=== PATIENT | female | born 1930 | race Hispanic/Latino ===

== ENCOUNTER 2019-07-22 20:42 | Emergency (ER) | payer OTHER ==
[2019-07-22 22:12] LABS: Urine Blood NEGATIVE (NEG); Urine Glucose TRACE (NEG); Urine Protein NEGATIVE (NEG)
[2019-07-22] MEDS ORDERED: ONDANSETRON 4 MG/2 ML VIAL ONE (22:17)
[2019-07-22] MEDS ORDERED: NA CHLORIDE 0.9% 1,000 ML ONE (22:17)
--- NOTE | 2019-07-22 22:31 | RAD REPORT ---
EXAM DESCRIPTION: CT - Head Brain Wo Cont - 07/22/2019 10:04 pm CLINICAL HISTORY: HEADACHE, hypertension, vomiting COMPARISON: No comparisons TECHNIQUE: Axial 5 mm thick images of the head were obtained without IV contrast. All CT scans are performed using dose optimization technique as appropriate and may include automated exposure control or mA/KV adjustment according to patient size. FINDINGS: No intracranial hemorrhage, mass, edema or shift of mid-line structures. No acute infarcti on changes seen. No cortical edema or sulcal effacement. Moderate severity atrophy is present. Chroni c ischemic change present but relatively mild. Ventricles are in proportion to the volume loss. Arter ial and physiologic calcifications are present. Mastoid air cells and visualized portions of the paranasal sinuses are clear. No acute bony findings. IMPRESSION: Atrophy and chronic ischemic changes are present. No acute intracranial finding.
[2019-07-22 22:40] LABS: Absolute Lymphocytes (CBC) 0.9 K/uL (0.7-4.9); Basophils % 0.3 % (0-1.3); Hematocrit 39.2 % (36.0-45.0); Lymphocytes % 9.9 % (15.3-44.8); MPV 10.9 fL (7.6-11.3); RBC Red Blood Cell Count 4.36 M/uL (3.86-4.86)
[2019-07-22 22:42] LABS: Protime INR 0.97
[2019-07-22 23:00] LABS: ALT/SGPT 24 U/L (12-78); AST/SGOT 19 U/L (15-37); Albumin 3.4 g/dL (3.4-5.0); Alkaline Phosphatase 115 U/L (45-117); BUN Blood Urea Nitrogen 15 mg/dL (7-18); Bicarbonate 29 mmol/L (21-32); Bilirubin Direct 0.2 mg/dL (0-0.2); Bilirubin Total 0.6 mg/dL (0.2-1.0); Glucose Level 104 mg/dL (74-106); Magnesium 2.3 mg/dL (1.8-2.4); NT PRO-BNP 1115 pg/mL (<450); Potassium 3.9 mmol/L (3.5-5.1); Protein, Total 7.5 g/dL (6.4-8.2); Sodium Level 137 mmol/L (136-145); Troponin (Emerg Dept Use Only) < 0.02 ng/mL (0.0-0.045)
[2019-07-22] MEDS ORDERED: AMLODIPINE 5 MG TAB ONE (23:01)
[2019-07-22] MEDS ORDERED: CEFTRIAXONE/SWI 1gm 1 GM/10 ML SYR ONE (23:01)
[2019-07-22] MEDS ORDERED: ACETAMINOPHEN 500 MG TAB ONE (23:25)
--- NOTE | 2019-07-23 00:12 | EDPHYS ---
Physician Documentation [facility] Name: Karolina Selby Age: 89 yrs Sex: Female : 1930 Arrival Date: 07/22/2019 Time: 20:49 Bed 6 Private MD: JASON Physician Fredi West HPI: 07/21 22:48 This 89 yrs old Female presents to ER via Wheelchair with complaints of manolo Headache. 22:48 The patient complains of pain to the top of head, forehead, left frontal area, left manolo side of the back of head, left occipital area, left base of the skull, right frontal area, right side of the back of head, right occipital area and right base of the skull. The patient describes the headache as aching. Onset: The symptoms/episode began/occurred just prior to arrival. Associated signs and symptoms: The patient has no apparent associated signs or symptoms. Severity of symptoms: At its worst the pain was mild, in the emergency department the pain is unchanged. Headache History: Denies prior headaches. The symptoms are alleviated by nothing. the symptoms are aggravated by nothing. The patient has not experienced similar symptoms in the past. Historical: - Allergies: 21:08 Shrimp; ca1 21:08 Iodine; ca1 21:33 shellfish; ca1 - Home Meds: 21:33 aspirin 81 mg Oral chew 1 tab once daily [Active]; Lexapro 10 mg Oral tab 1 tab once ca1 daily [Active]; Plavix 75 mg Oral tab 1 tab once daily [Active]; acebutolol 200 mg Oral cap 1 cap once daily [Active]; losartan 100 mg oral tab 1 tab once daily [Active]; Lipitor 20 mg Oral tab 1 tab nightly [Active]; Dexilant 60 mg oral CpDB 1 cap as needed [Active]; meclizine 12.5 mg Oral tab as needed [Active]; - PMHx: 21:33 Hyperlipidemia; Hypertension; ca1 - Immunization history:: Adult Immunizations up to date, Pneumococcal vaccine is up to date, Flu vaccine is up to date. - Social history:: Smoking status: Patient denies any tobacco usage or history of. - Family history:: not pertinent. ROS: 22:48 Constitutional: Negative for fever, chills, and weight loss, Eyes: Negative for injury, manolo pain, redness, and discharge, ENT: Negative for injury, pain, and discharge, Neck: Negative for injury, pain, and swelling, Cardiovascular: Negative for chest pain, palpitations, and edema, Respiratory: Negative for shortness of breath, cough, wheezing, and pleuritic chest pain, Abdomen/GI: Negative for abdominal pain, nausea, vomiting, diarrhea, and constipation, Back: Negative for injury and pain, : Negative for injury, bleeding, discharge, and swelling, MS/Extremity: Negative for injury and deformity, Skin: Negative for injury, rash, and discoloration, Psych: Negative for depression, anxiety, suicide ideation, homicidal ideation, and hallucinations, Allergy/Immunology: Negative for hives, rash, and allergies, Endocrine: Negative for neck swelling, polydipsia, polyuria, polyphagia, and marked weight changes, Hematologic/Lymphatic: Negative for swollen nodes, abnormal bleeding, and unusual bruising. 22:48 Neuro: Positive for headache. Exam: 22:48 Constitutional: This is a well developed, well nourished patient who is awake, alert, manolo and in no acute distress. Head/Face: Normocephalic, atraumatic. Eyes: Pupils equal round and reactive to light, extra-ocular motions intact. Lids and lashes normal. Conjunctiva and sclera are non-icteric and not injected. Cornea within normal limits. Periorbital areas with no swelling, redness, or edema. ENT: Nares patent. No nasal discharge, no septal abnormalities noted. Tympanic membranes are normal and external auditory canals are clear. Oropharynx with no redness, swelling, or masses, exudates, or evidence of obstruction, uvula midline. Mucous membranes moist. Neck: Trachea midline, no thyromegaly or masses palpated, and no cervical lymphadenopathy. Supple, full range of motion without nuchal rigidity, or vertebral point tenderness. No Meningismus. Chest/axilla: Normal chest wall appearance and motion. Nontender with no deformity. No lesions are appreciated. Cardiovascular: Regular rate and rhythm with a normal S1 and S2. No gallops, murmurs, or rubs. Normal PMI, no JVD. No pulse deficits. Respiratory: Lungs have equal breath sounds bilaterally, clear to auscultation and percussion. No rales, rhonchi or wheezes noted. No increased work of breathing, no retractions or nasal flaring. Abdomen/GI: Soft, non-tender, with normal bowel sounds. No distension or tympany. No guarding or rebound. No evidence of tenderness throughout. Back: No spinal tenderness. No costovertebral tenderness. Full range of motion. Female : Normal external genitalia. Skin: Warm, dry with normal turgor. Normal color with no rashes, no lesions, and no evidence of cellulitis. MS/ Extremity: Pulses equal, no cyanosis. Neurovascular intact. Full, normal range of motion. Neuro: Awake and alert, GCS 15, oriented to person, place, time, and situation. Cranial nerves II-XII grossly intact. Motor strength 5/5 in all extremities. Sensory grossly intact. Cerebellar exam normal. Normal gait. Psych: Awake, alert, with orientation to person, place and time. Behavior, mood, and affect are within normal limits. Vital Signs: 21:00 BP 220 / 85; Pulse 85; Resp 18 S; Temp 98.3(TE); Pulse Ox 98% on R/A; Weight 61.23 kg ca1 (R); Height 5 ft. 3 in. (160.02 cm) (R); 22:31 BP 176 / 101; Pulse 69; Resp 17; Pulse Ox 98% on R/A; rr5 23:00 BP 196 / 110; Pulse 65; Resp 17; Pulse Ox 98% on R/A; rr5 07/22 00:00 BP 177 / 74; Pulse 68; Resp 16; Pulse Ox 97% ; rr5 01:00 BP 166 / 80; Pulse 64; Resp 19; Temp 98.4; Pulse Ox 99% ; rr5 07/21 21:00 Body Mass Index 23.91 (61.23 kg, 160.02 cm) ca1 James Coma Score: 07/21 21:00 Eye Response: spontaneous(4). Verbal Response: confused(4). Motor Response: obeys rr5 commands(6). Total: 14. MDM: 21:22 Patient medically screened. [facility] 22:51 Data reviewed: vital signs, nurses notes, lab test result(s), EKG, radiologic studies, [facility] CT scan, plain films. 07/21 21:39 Order name: Basic Metabolic Panel; Complete Time: 23:43 [facility] 07/21 21:39 Order name: CBC with Diff; Complete Time: 22:46 [facility] 07/21 21:39 Order name: LFT's; Complete Time: 23:43 [facility] 07/21 21:39 Order name: Magnesium; Complete Time: 23:43 [facility] 07/21 21:39 Order name: NT PRO-BNP; Complete Time: 23:43 [facility] 07/21 21:39 Order name: PT-INR; Complete Time: 22:46 [facility] 07/21 21:39 Order name: Troponin (emerg Dept Use Only); Complete Time: 23:43 [facility] 07/21 21:39 Order name: XRAY Chest (1 view) [facility] 07/21 21:39 Order name: Urine Culture [facility] 07/21 21:39 Order name: CT Head Brain wo Cont; Complete Time: 22:46 [facility] 07/21 22:10 Order name: Urine Dipstick--Ancillary (enter results) 07/21 22:13 Order name: Urine Dipstick-Ancillary; Complete Time: 22:46 EDMS 07/21 21:39 Order name: EKG; Complete Time: 21:40 [facility] 07/21 21:39 Order name: Cardiac monitoring; Complete Time: 22:31 [facility] 07/21 21:39 Order name: EKG - Nurse/Tech; Complete Time: 22:31 [facility] 07/21 21:39 Order name: IV Saline Lock; Complete Time: 22:37 [facility] 07/21 21:39 Order name: Labs collected and sent; Complete Time: 22:37 [facility] 07/21 21:39 Order name: O2 Per Protocol; Complete Time: 22:31 [facility] 07/21 21:39 Order name: O2 Sat Monitoring; Complete Time: 22:31 [facility] 07/21 21:39 Order name: Urine Dipstick-Ancillary (obtain specimen); Complete Time: 22:31 [facility] Administered Medications: 22:37 Drug: NS 0.9% 1000 ml Route: IV; Rate: 125 ml/hr; Site: left forearm; rr5 07/22 01:00 Follow up: Response: No adverse reaction; IV Status: Order to discontinue infusion; IV rr5 Intake: 300ml 07/21 22:54 CANCELLED (Duplicate Order): Norvasc 5 mg PO once [facility] 22:55 Drug: Rocephin 1 grams Route: IV; Rate: per protocol; Site: left forearm; rr5 23:55 Follow up: Response: No adverse reaction; IV Status: Completed infusion; IV Intake: [id number] 23:00 Drug: Zofran (Ondansetron) 4 mg Route: IVP; Site: left forearm; rr5 07/22 00:00 Follow up: Response: No adverse reaction rr5 07/21 23:10 Drug: Tylenol 1000 mg Route: PO; rr5 07/22 00:10 Follow up: Response: No adverse reaction rr5 07/21 23:15 Drug: Norvasc 10 mg Route: PO; rr5 07/22 00:21 Follow up: Response: No adverse reaction; Blood pressure is lowered rr5 00:21 Drug: TORadol 30 mg Route: IVP; Site: left forearm; rr5 01:00 Follow up: Response: No adverse reaction; Pain is decreased rr5 Disposition: 07/23/19 00:11 Discharged to Home. Impression: Essential (primary) hypertension, Urinary tract infection, site not specified, Dementia in other diseases classified elsewhere, Headache. - Condition is Stable. - Discharge Instructions: Dysuria, General Headache Without Cause, Hypertension, Urinary Tract Infection, Adult, Urinary Tract Infection, Adult, Wrpy-ul-Vaoz, Hypertension, Jyal-eh-Rjwn, How to Take Your Blood Pressure, Ffoj-ev-Mclq, General Headache Without Cause, Yrol-mn-Jkjz, Managing Your Hypertension. - Prescriptions for Cipro 250 mg Oral Tablet - take 1 tablet by ORAL route every 12 hours; 14 tablet. Norvasc 5 mg Oral Tablet - take 1 tablet by ORAL route once daily; 20 tablet. - Medication Reconciliation Form, Thank You Letter, Antibiotic Education, Prescription Opioid Use form. - Follow up: Private Physician; When: 2 - 3 days; Reason: Recheck today's complaints, Continuance of care, Re-evaluation by your physician. Follow up: Sorin Fonseca; When: 2 - 3 days; Reason: Recheck today's complaints, Continuance of care, Re-evaluation by your physician. Follow up: Joe Chandra; When: 2 - 3 days; Reason: Recheck today's complaints, Re-evaluation by your physician. - Problem is new. - Symptoms have improved. Signatures: Dispatcher [employer] EDFredi Greene MD MD cha Roque, Raymond, RN RN rr5 Ofelia Lutz RN RN ca1 Corrections: (The following items were deleted from the chart) 07/21 22:54 22:53 Norvasc 5 mg PO once ordered. [facility] 07/22 00:13 00:11 07/23/2019 00:11 Discharged to Home. Impression: Essential (primary) manolo hypertension; Urinary tract infection, site not specified; Dementia in other diseases classified elsewhere. Condition is Stable. Discharge Instructions: Dysuria, Hypertension, Urinary Tract Infection, Adult, Urinary Tract Infection, Adult, Rjws-id-Hyzl, Hypertension, Ueyy-il-Ryhu, How to Take Your Blood Pressure, Lkkl-nz-Nzuq, Managing Your Hypertension. Prescriptions for Norvasc 5 mg Oral Tablet - take 1 tablet by ORAL route once daily; 20 tablet, Cipro 250 mg Oral Tablet - take 1 tablet by ORAL route every 12 hours; 14 tablet. and Forms are Medication Reconciliation Form, Thank You Letter, Antibiotic Education, Prescription Opioid Use. Follow up: Private Physician; When: 2 - 3 days; Reason: Recheck today's complaints, Continuance of care, Re-evaluation by your physician. Follow up: Sorin Fonseca; When: 2 - 3 days; Reason: Recheck today's complaints, Continuance of care, Re-evaluation by your physician. Follow up: Joe Chandra; When: 2 - 3 days; Reason: Recheck today's complaints, Re-evaluation by your physician. Problem is new. Symptoms have improved. [facility] : 00:13 07/23/2019 00:11 Discharged to Home. Impression: Essential (primary) rr5 hypertension; Urinary tract infection, site not specified; Dementia in other diseases classified elsewhere; Headache. Condition is Stable. Discharge Instructions: Dysuria, Hypertension, Urinary Tract Infection, Adult, Urinary Tract Infection, Adult, Ovvu-bw-Wyxq, Hypertension, Ohll-ei-Whii, How to Take Your Blood Pressure, Woeo-hy-Axnx, Managing Your Hypertension, General Headache Without Cause, General Headache Without Cause, Alag-kh-Xrom. Prescriptions for Norvasc 5 mg Oral Tablet - take 1 tablet by ORAL route once daily; 20 tablet, Cipro 250 mg Oral Tablet - take 1 tablet by ORAL route every 12 hours; 14 tablet. and Forms are Medication Reconciliation Form, Thank You Letter, Antibiotic Education, Prescription Opioid Use. Follow up: Private Physician; When: 2 - 3 days; Reason: Recheck today's complaints, Continuance of care, Re-evaluation by your physician. Follow up: Sorin Fonseca; When: 2 - 3 days; Reason: Recheck today's complaints, Continuance of care, Re-evaluation by your physician. Follow up: Joe Chandra; When: 2 - 3 days; Reason: Recheck today's complaints, Re-evaluation by your physician. Problem is new. Symptoms have improved. manolo
--- NOTE | 2019-07-23 00:12 | ER ---
Nurse's Notes [facility] Name: Karolina Selby Age: 89 yrs Sex: Female : 1930 Arrival Date: 07/22/2019 Time: 20:49 Bed 6 Private MD: Diagnosis: Essential (primary) hypertension;Urinary tract infection, site not specified;Dementia in other diseases classified elsewhere;Headache Presentation: 07/21 21:00 Chief complaint: Patient states: Headache started today. BP at 8pm is 194/97. Pt has ca1 dementia. A\T\0 x 2. Coronavirus screen: Patient denies fever greater than 100.4F, cough, shortness of breath, or difficulty breathing. Proceed with normal triage process. Ebola Screen: Patient negative for fever greater than or equal to 101.5 degrees Fahrenheit, and additional compatible Ebola Virus Disease symptoms Patient denies exposure to infectious person. Patient denies travel to an Ebola-affected area in the 21 days before illness onset. No symptoms or risks identified at this time. Initial Sepsis Screen: Does the patient meet any 2 criteria? No. Patient's initial sepsis screen is negative. Does the patient have a suspected source of infection? No. Patient's initial sepsis screen is negative. Risk Assessment: Do you want to hurt yourself or someone else? Patient reports no desire to harm self or others. Onset of symptoms was July 22, 2019. 21:00 Method Of Arrival: Wheelchair ca1 21:00 Acuity: DAREK 3 ca1 Triage Assessment: 21:00 Pain: Also complains of vomiting. rr5 21:00 Headache History: Other unable to assess. General: Appears in no apparent distress. rr5 Pain: Complains of pain in head. Historical: - Allergies: 21:08 Shrimp; ca1 21:08 Iodine; ca1 21:33 shellfish; ca1 - Home Meds: 21:33 aspirin 81 mg Oral chew 1 tab once daily [Active]; Lexapro 10 mg Oral tab 1 tab once ca1 daily [Active]; Plavix 75 mg Oral tab 1 tab once daily [Active]; acebutolol 200 mg Oral cap 1 cap once daily [Active]; losartan 100 mg oral tab 1 tab once daily [Active]; Lipitor 20 mg Oral tab 1 tab nightly [Active]; Dexilant 60 mg oral CpDB 1 cap as needed [Active]; meclizine 12.5 mg Oral tab as needed [Active]; - PMHx: 21:33 Hyperlipidemia; Hypertension; ca1 - Immunization history:: Adult Immunizations up to date, Pneumococcal vaccine is up to date, Flu vaccine is up to date. - Social history:: Smoking status: Patient denies any tobacco usage or history of. - Family history:: not pertinent. Screenin:00 Fall Risk Secondary diagnosis (15 points) dementia, IV access (20 points). Gait- Weak rr5 (10 pts.). Mental Status- Overestimates/Forgets Limitations (15 pts.). Total Burton Fall Scale indicates Low Risk Score (25-44 pts). Fall prevention measures have been instituted. Side Rails Up X 2 Placed close to Nursing Station Frequent Obs/Assesments occuring As available Patient and Family Educated on Fall Prevention Program and strategies. 21:10 Abuse screen: Denies threats or abuse. Denies injuries from another. Nutritional rr5 screening: No deficits noted. Tuberculosis screening: No symptoms or risk factors identified. Assessment: 21:00 General: Appears in no apparent distress. comfortable, Behavior is calm, cooperative. rr5 Pain: Complains of pain in head Pain does not radiate. Pain currently is 5 out of 10 on a pain scale. Quality of pain is described as aching, Pain began gradually, Is intermittent. Neuro: Level of Consciousness is awake, alert, obeys commands, Oriented to person, place, Reports headache. Cardiovascular: Capillary refill < 3 seconds Patient's skin is warm and dry. Respiratory: Airway is patent Respiratory effort is even, unlabored, Respiratory pattern is regular, symmetrical. GI: No signs and/or symptoms were reported involving the gastrointestinal system. : No signs and/or symptoms were reported regarding the genitourinary system. EENT: No signs and/or symptoms were reported regarding the EENT system. Derm: Skin is intact, is healthy with good turgor, Skin temperature is warm. Musculoskeletal: Circulation, motion, and sensation intact. Capillary refill < 3 seconds. 21:34 Reassessment: Aditya Sanders's number for updates: [phone]. ca1 22:00 Reassessment: Patient appears in no apparent distress at this time. No changes from rr5 previously documented assessment. awaiting for results. 22:50 Reassessment: Patient appears in no apparent distress at this time. complaints of rr5 headache and vomiting. ED provider aware with order made and carried out. 07/22 00:00 Reassessment: Patient appears in no apparent distress at this time. still complaining rr5 of headache. ED provider aware with order made and carried out. 01:00 Reassessment: Patient appears in no apparent distress at this time. discharge rr5 instruction given and explained to son of the patient, without complaints made. verbalized understanding. confirm to son the patients baseline orientation he said that is her normal. Patient states feeling better. Patient states symptoms have improved. Vital Signs: 07/21 21:00 BP 220 / 85; Pulse 85; Resp 18 S; Temp 98.3(TE); Pulse Ox 98% on R/A; Weight 61.23 kg ca1 (R); Height 5 ft. 3 in. (160.02 cm) (R); 22:31 BP 176 / 101; Pulse 69; Resp 17; Pulse Ox 98% on R/A; rr5 23:00 BP 196 / 110; Pulse 65; Resp 17; Pulse Ox 98% on R/A; rr5 07/22 00:00 BP 177 / 74; Pulse 68; Resp 16; Pulse Ox 97% ; rr5 01:00 BP 166 / 80; Pulse 64; Resp 19; Temp 98.4; Pulse Ox 99% ; rr5 07/21 21:00 Body Mass Index 23.91 (61.23 kg, 160.02 cm) ca1 [place] Coma Score: 07/21 21:00 Eye Response: spontaneous(4). Verbal Response: confused(4). Motor Response: obeys rr5 commands(6). Total: 14. ED Course: 20:49 Patient arrived in ED. mr 20:53 Fredi West MD is Attending Physician. manolo 21:01 Triage completed. ca1 21:04 Juan Francisco Rg RN is Primary Nurse. rr5 21:05 Patient has correct armband on for positive identification. Placed in gown. Bed in low rr5 position. Call light in reach. Side rails up X2. manager monitoring on. Pulse ox on. NIBP on. 21:05 Warm blanket given. rr5 21:08 Arm band placed on right wrist. ca1 21:51 XRAY Chest (1 view) In Process Unspecified. EDMS 22:04 CT Head Brain wo Cont In Process Unspecified. EDMS 22:10 Urine collected: clean catch specimen, clear, EKG done, by ED staff, reviewed by Fredi West MD. 22:35 Inserted saline lock: 22 gauge in left forearm, using aseptic technique. Blood oe collected. 07/22 00:11 Sorin Fonseca MD is Referral Physician. manolo 00:11 Joe Chandra MD is Referral Physician. manolo 01:00 No provider procedures requiring assistance completed. IV discontinued, intact, rr5 bleeding controlled, No redness/swelling at site. Pressure dressing applied. Administered Medications: 07/21 22:37 Drug: NS 0.9% 1000 ml Route: IV; Rate: 125 ml/hr; Site: left forearm; rr5 07/22 01:00 Follow up: Response: No adverse reaction; IV Status: Order to discontinue infusion; IV rr5 Intake: 300ml 07/21 22:54 CANCELLED (Duplicate Order): Norvasc 5 mg PO once manolo 22:55 Drug: Rocephin 1 grams Route: IV; Rate: per protocol; Site: left forearm; rr5 23:55 Follow up: Response: No adverse reaction; IV Status: Completed infusion; IV Intake: [id number] 23:00 Drug: Zofran (Ondansetron) 4 mg Route: IVP; Site: left forearm; rr5 07/22 00:00 Follow up: Response: No adverse reaction rr5 07/21 23:10 Drug: Tylenol 1000 mg Route: PO; rr5 07/22 00:10 Follow up: Response: No adverse reaction rr5 07/21 23:15 Drug: Norvasc 10 mg Route: PO; rr5 07/22 00:21 Follow up: Response: No adverse reaction; Blood pressure is lowered rr5 00:21 Drug: TORadol 30 mg Route: IVP; Site: left forearm; rr5 01:00 Follow up: Response: No adverse reaction; Pain is decreased rr5 Intake: 07/21 23:55 IV: 10ml; Total: 10ml. rr5 07/22 01:00 IV: 300ml; Total: 310ml. rr5 Outcome: 00:11 Discharge ordered by . manolo 01:00 Patient left the ED. rr5 01:00 Discharged to home via wheelchair, with family. rr5 01:00 Condition: stable 01:00 Discharge instructions given to family, Instructed on discharge instructions, follow up and referral plans. medication usage, Demonstrated understanding of instructions, follow-up care, medications, Prescriptions given X 2. Signatures: Dispatcher [employer] EDFredi Greene MD MD cha Rivera, Noreen mr Khan, Juan Francisco Marie RN RN rr5 Ofelia Lutz RN RN ca1 Corrections: (The following items were deleted from the chart) 07/21 21:34 21:00 Chief complaint: Patient states: Headache started today. BP at 8pm is 194/97. Pt ca1 has dementia ca1 22:47 21:00 Neuro: Level of Consciousness is awake, alert, obeys commands, Oriented to rr5 person, place, time, Reports headache rr5
[2019-07-23] MEDS ORDERED: KETOROLAC 30 MG/ML INJ ONE (00:19)
[2019-07-23 01:07] VITALS: TEMP 98.3
[2019-07-23 01:12] VITALS: BP 177/74; O2SAT 97
--- NOTE | 2019-07-23 08:08 | EKG ---
Test Date: 2019-07-22 Test Time: 22:19:38 Head Charrer: RR MEASUREMENT RESULTS: Intervals: Rate: 71 SC: 180 QRSD: 82 QT: 420 QTc: 456 [place]: P: 61 SC: 180 QRS: 38 T: 72 INTERPRETIVE STATEMENTS: Normal sinus rhythm Normal ECG No previous ECG available for comparison Electronically Signed On 07-23-19 08:07:42 CDT by Sorin Fonseca
--- NOTE | 2019-07-23 08:08 | RAD REPORT ---
EXAM DESCRIPTION: Willy Single View07/22/2019 9:53 pm CLINICAL HISTORY: cough COMPARISON: none FINDINGS: The lungs appear clear of acute infiltrate. The heart is normal size IMPRESSION: No acute abnormalities displayed
== END 2019-07-23 01:00 | disposition home or self-care (01) ==
LOC: ER 20:42
DX: I10 Essential (primary) hypertension (principal); N39.0 Urinary tract infection, site not specified; F03.90 Unspecified dementia, unspecified severity, without behavioral disturbance, psychotic disturbance, mood disturbance, and anxiety; E78.5 Hyperlipidemia, unspecified; Z79.01 Long term (current) use of anticoagulants; Z79.82 Long term (current) use of aspirin
CPT/HCPCS: 96365; 96361; 93005; 87088; 85025; 87086; 80048; 36415; 83735; 85610; 80076; 81003; 84484; 83880; 70450; 71045; 96375; 99285; J0696; J7030; J2405